=== PATIENT | male | born 1995 | race Caucasian/White ===

== ENCOUNTER 2016-12-10 16:01 | Emergency (ER) | payer BC ==
[2016-12-10 16:15] VITALS: BP 123/64
--- OUTSIDE RECORDS SUMMARY | 2016-12-10 17:07 | XMS REPORT | Continuity of Care Document ---
:1995 Author Organization [facility] ([facility]) Address [address] [place] [address] Phone [phone] Care Team Providers Name Role Phone Sha Padron Primary Care Provider [phone] Source Comments This disclosure is being made pursuant to the Care Everywhere program, applicable federal and state laws, and may not contain all informaitonavailable regarding this patient.[facility] ([facility]) Active Allergies and Adverse Reactions Allergen Noted Date Severity Reactions Comments Penicillins 12/31/2014 Respiratory Distress Current Medications Prescription Sig. Disp. Refills Start Date End Date Status ALPRAZOLAM 2 mg Take 3 Tabs by 12/11/2014 Active disintegrating tablet mouth as needed. ONDANSETRON 4 mg Take 1 Tab by 10/14/2014 Active disintegrating tablet mouth as needed. Active Problems Not on file Social History Tobacco Use Types Packs/Day Years Used Date Never Assessed Last Filed Vital Signs Vital Sign Reading Time Taken Blood Pressure 118/77 02/12/2015 2:23 PM CDT Pulse 71 02/12/2015 12:08 PM CDT Temperature 36.3 C (97.3 F) 02/12/2015 12:08 PM CDT Respiratory Rate 16 02/12/2015 2:23 PM CDT Height 1.727 m (5' 8") 12/31/2014 3:02 PM CDT Weight 78.971 kg (174 lb 1.6 oz) 12/31/2014 3:02 PM CDT Body Mass Index 26.48 12/31/2014 3:02 PM CDT Oxygen Saturation 99% 02/12/2015 2:23 PM CDT Plan of Care Health Maintenance Due Date Last Done Comments Hepatitis B Vaccine (1 of 3 - Primary Series) 1994 HPV Vaccine (1 of 3 - Male 3 Dose Series) 2005 Tdap Vaccine 2005 Meningococcal Vaccine (1 of 1) 2010 Lipid Disorder Screening 2012 MMR Vaccine 2012 Td Vaccine 2012 Varicella Vaccine (1 of 2 - Adult - No Evidence of 2012 Immunity) Influenza Vaccine: Seasonal (#1) 04/06/2016 Results from Last 3 Months Not on file
== END 2016-12-10 17:05 | disposition left against medical advice (07) ==
LOC: ER 16:01
DX: Z53.21 Procedure and treatment not carried out due to patient leaving prior to being seen by health care provider (principal)

== ENCOUNTER 2017-03-21 10:01 | Emergency (ER) | payer BC ==
[2017-03-21] MEDS ORDERED: NORMAL SALINE 1,000 ML IV ONE (10:54)
[2017-03-21] MEDS ORDERED: ONDANSETRON HCL/PF 2 MG/ML VIAL IV ONE (10:54)
[2017-03-21] MEDS ORDERED: LORazepam 2 MG/ML DISP.SYRIN IV ONE (10:55)
[2017-03-21 11:07] LABS: Hematocrit 48.4 % (42.0-52.0); Hemoglobin 17.1 gm/dL (13.5-18.0); Mean Cell Volume 84.3 fl (78-100); Mean Corpuscular Hemoglobin 29.8 pg (27-31); Mean Corpuscular Hgb Conc 35.3 g/dl (32-36); Mean Platelet Volume 10.2 fl (6.0-9.5); Platelet Count 292 K/mm3 (150-450); Red Blood Count 5.74 M/mm3 (4.7-6.0); Red Cell Distribution Width 12.1 % (11.5-14.0); White Blood Count 30.6 K/mm3 (4.0-10.5)
[2017-03-21 11:11] LABS: Total Cells Counted 100
[2017-03-21] MEDS ORDERED: ONDANSETRON HCL/PF 2 MG/ML VIAL ONE (11:18)
[2017-03-21] MEDS ORDERED: LORazepam 2 MG/ML DISP.SYRIN ONE (11:19)
[2017-03-21 11:21] LABS: Albumin * 5.1 gm/dl (3.4-5.0); Anion Gap 19.1 mmol/L (6.8-13.8); BUN/Creatinine Ratio 11.4 (9.0-21.6); Bilirubin, Total 1.5 mg/dL (0.0-1.1); Ca. Corrected For Albumin 8.3 mg/dL (8.4-10.2); Calcium * 9.5 mg/dL (7.9-10.9); Carbon Dioxide 23.4 mmol/L (24-32.6); Potassium 3.5 mmol/L (3.4-4.6); Total Protein 8.6 gm/dL (6.2-8.2)
[2017-03-21] MEDS ORDERED: KETOROLAC TROMETHAMINE 30 MG/ML VIAL IV ONE (11:33)
[2017-03-21] MEDS ORDERED: KETOROLAC TROMETHAMINE 30 MG/ML VIAL ONE (11:35)
[2017-03-21 11:37] LABS: Band 1 % (0-2.0); Lymphocyte 7 % (20-51); Monocyte 4 % (0-9); Neutrophil 88 % (42-75); Neutrophil # 26.9 K/mm3 (1.3-6.0); Platelet Estimate Normal (NORMAL); RBC Morphology Normal (NORMAL)
[2017-03-21 11:47] LABS: Urine Bilirubin 1 mg/dl (NEGATIVE); Urine Ketone Large mg/dL (NEGATIVE); Urine Nitrite Negative (NEGATIVE); Urine Protein 30 mg/dL (NEGATIVE); Urine Specific Gravity >=1.030 SP.GR. (1.005-1.030); Urine Urobilinogen Normal (NORMAL)
[2017-03-21 12:04] LABS: Urine Appearance Clear; Urine Bacteria TRACE; Urine Blood 5 /ul (NEGATIVE); Urine Color Dark Yellow; Urine Mucus Moderate - 2+; Urine RBC 0-5 /hpf (0-5); Urine WBC TRACE /hpf (0-5)
[2017-03-21 12:37] LABS: Cocaine Ur Negative (NEGATIVE); Urine Barbiturate Negative (NEGATIVE); Urine Benzodiazepines Negative (NEGATIVE); Urine Opiates Negative (NEGATIVE); Urine PCP Negative (NEGATIVE)
[2017-03-21 12:38] LABS: Urine THC Positive (NEGATIVE)
[2017-03-21] MEDS ORDERED: NORMAL SALINE 1,000 ML IV PRN (12:48)
--- NOTE | 2017-03-21 14:21 | ERNOTE ---
Medical Problem HPI - Narrative Date of Service: 03/21/17 - General Chief Complaint: Nausea/Vomiting Time Seen by Provider: 03/21/17 10:40 Source: patient, family Exam Limitations: no limitations - Immun/Allergies/Home Medications Immunizations: IMMUNIZATION HX Immunizations Up to Date Yes History of Influenza Vaccine No Hx Pneumococcal Vaccination No Allergies/Adverse Reactions: Allergies penicillin V potassium [From Pen-Vee K] Allergy (Verified 03/21/17 10:44) Home Medications: HOME MEDICATIONS ALPRAZolam [Xanax] 1 mg PO TID PRN 12/05/15 [Last Taken Unknown] Ondansetron [Zofran Odt] 4 mg PO Q6H PRN #20 tab 05/18/16 [Last Taken Unknown] Promethazine HCl [Phenergan Suppository] 25 mg RC Q6H PRN #20 supp.rect [Last Taken Unknown] - Pain Score Pain Score #1 Pain Score: 10 Pain Score #2 Pain Score: 5 Pain Score #3 Pain Score: 1 - History of Present History Narrative: Patient is a 21 year old male who presents to the ED with complaints of vomiting since 0700. Patient appears to be in excruciating pain, holding right posterior back area and dry heaving/retching. Patient has been seen by multiple physicians, specialists for this vomiting. Patient states that nausea and vomiting is usually worse in the morning when he first arises. States that if he does not quickly take his nausea medicine he begins to vomit. No emesis is seen in ER. Denies fever Date (Duration): 03/21/17 Time (Timing): 07:00 Timing: constant Severity: moderate Modifying Factors - (Improves): Present: other - nothing Modifying Factors - (Worsens): Present: movement Review of Systems - Review of Systems Constitutional: Present: no symptoms reported. Absent: recent illness, fever, chills, diaphoresis, weakness, fatigue, malaise, weight loss, fussy, decreased activity level EYE: Present: no symptoms reported. Absent: eye pain, eye discharge, blurred vision, double vision, vision changes, tearing ENT: Present: no symptoms reported. Absent: ear pain, ear discharge, pulling on ears, nose pain, nose congestion, nasal drainage, sore throat, throat swelling Respiratory: Present: no symptoms reported. Absent: shortness of breath, cough , orthopnea, wheezing, stridor Cardiology: Present: no symptoms reported. Absent: chest pain, palpitations, syncope, edema, claudication Gastrointestinal/Abdominal: Present: nausea, vomiting - per report, eating less , drinking less. Absent: diarrhea, constipation, abdominal pain Genitourinary: Present: no symptoms reported Musculoskeletal: Present: back pain. Absent: neck pain, joint pain, joint swelling - right posterior mid back pain Skin: Present: no symptoms reported Neurological: Present: anxiety Endocrine: Present: no symptoms reported Hematologic/Lymphatic: Present: no symptoms reported Psych: Present: no symptoms reported - Patient's Past Medical History Patient History - Medical: Anxiety, Headache, Other Patient History - Cardiac/Respiratory: No pertinent hx Patient History - Cancer: No Hx of Cancer Patient History - Surgical Procedures: Cholecystectomy, T & A Patient History - Other: None - Family History Mother Family History - Medical: No pertinent hx Family History - Cardiac/Respiratory: No pertinent hx Father Family History - Medical: No pertinent hx Family History - Cardiac/Respiratory: No pertinent hx - Social History Living Situations: home Abuse History: No History of abuse Psych History: No pertinent hx Alcohol Use: none Drug Use: none, marijuana - Immunizations Immunizations Up to Date: Yes Hx Pneumococcal Vaccination: No History of Influenza Vaccine: No Physical Exam - Physical Exam General Appearance: Present: wd/wn, alert, mild distress, crying Head Exam: Present: normal inspection, no evidence of injury Eye Exam: Normal inspection: bilateral, PERRL: bilateral, EOMI: bilateral Ears, Nose, Throat: Present: normal ENT inspection, normal pharynx. Absent: pharyngeal erythema, pharyngeal swelling, tonsillar exudate, dry mucous membranes Neck: Present: normal inspection, nontender, supple, full range of motion, limited range of motion Respiratory: Present: no respiratory distress, normal breath sounds, no accessory muscle use, chest nontender, lungs clear Cardiovascular/Chest: Present: regular rate, rhythm, no murmur, normal peripheral pulses Peripheral Pulses: N=norm/S=strong/W=weak/B=bound/A=absent: Radial (R): Normal, Radial (L): Normal Gastrointestinal/Abdominal: Present: normal bowel sounds, nontender, nondistended, soft, no organomegaly Rectal Exam: Present: deferred Male Genitals Exam: Present: deferred Back Exam: Present: normal inspection, no CVA tenderness, decreased range of motion. Absent: normal range of motion Extremity Exam: Present: normal inspection, non-tender, normal range of motion, no edema Neurological Exam: Present: alert, oriented, normal mood/affect, no motor/ sensory deficits Skin Exam: Present: normal color, warm/dry Lymphatic Exam: Present: no adenopathy ED Progress - Results and Orders Patient's Lab Results:: I have reviewed the patient's lab results. - Vital Signs Patient's Vital Signs:: I have reviewed the patient's vital signs. Vital Signs: Vital Signs 03/21/17 03/21/17 03/21/17 10:35 11:37 12:30 Temperature 36.3 C L 36.6 C 36.7 C Pulse Rate 72 86 100 Respiratory 16 22 H 16 Rate Blood Pressure 129/75 127/86 127/70 O2 Sat by Pulse 97 95 100 Oximetry 03/21/17 13:50 Temperature 36.9 C Pulse Rate 99 Respiratory 16 Rate Blood Pressure 111/62 O2 Sat by Pulse 99 Oximetry - Progress/Reassessment Chief Complaint: Nausea/Vomiting Progress:: Improved Progress Note-Subjective: 03/21/17 19:38 Upon discharge patient is lying quietly and states pain is gone. No longer dry heaving or complains of vomiting or nausea. Feels better after 2 liters fluid. Requesting suppositories Departure - Departure Clinical Impression: Vomiting Qualifiers: Vomiting type: cyclical vomiting Vomiting Intractability: intractable Nausea presence: with nausea Qualified Code(s): G43.A1 - Cyclical vomiting, intractable Disposition: Home Follow Up Needed Condition: Good Instructions: Nausea and Vomiting, Adult, [id number] Additional Instructions: Take nausea medications EITHER orally or rectally, one or the other Prescriptions: Promethazine HCl [Phenergan Suppository] 25 mg RC Q6H PRN #20 supp.rect PRN Reason: Nausea
[2017-03-21 14:35] VITALS: BP 103/56
== END 2017-03-21 14:36 | disposition home or self-care (01) ==
LOC: ER 10:01
DX: G43.A1 Cyclical vomiting, in migraine, intractable (principal)
CPT/HCPCS: 36415; 80053; 80307; 81001; 82150; 83605; 83690; 85025; 87040; 96374; 96375; 99284; J2405

== ENCOUNTER 2017-07-10 13:23 | Emergency (ER) | payer BC ==
[2017-07-10] MEDS ORDERED: NORMAL SALINE 1,000 ML IV ONE (13:38)
[2017-07-10] MEDS ORDERED: PROMETHAZINE HCL 12.5 MG in DEXTROSE 5 % IN WATER 50 ML IV ONE ×4 (13:39→15:21)
--- NOTE | 2017-07-10 13:59 | ERNOTE ---
Medical Problem HPI - Narrative Date of Service: 07/10/17 - General Chief Complaint: Nausea/Vomiting Time Seen by Provider: 07/10/17 13:28 Source: patient, family - Immun/Allergies/Home Medications Immunizations: IMMUNIZATION HX Immunizations Up to Date Yes History of Influenza Vaccine No Hx Pneumococcal Vaccination No Allergies/Adverse Reactions: Allergies penicillin V potassium [From Pen-Vee K] Allergy (Verified 07/10/17 13:33) Home Medications: HOME MEDICATIONS ALPRAZolam [Xanax] 1 mg PO TID PRN 12/05/15 [Last Taken Unknown] Ondansetron [Zofran Odt] 4 mg PO Q6H PRN #20 tab 05/18/16 [Last Taken Unknown] Promethazine HCl [Phenergan Suppository] 25 mg RC Q6H PRN #20 supp.rect [Last Taken Unknown] Alprazolam [Alprazolam Odt] 0.5 mg PO TID PRN 4 Days #12 tab.rapdis 07/10/17 [ Last Taken Unknown] - History of Present History Timing: intermittent Severity: moderate Modifying Factors - (Improves): Present: medication Review of Systems - Narrative Narrative: States symptoms began spontaneously this AM at 0800. Has been dry heaving since that time. Took a rectal suppository along with a zofran 4mg which he states he threw back up. Denies any pain, fever, diarrhea. States he has had spontaneous nasea with dry heaves since the age of 2. They thought perhaps it was his gallbladder so they removed that but it did not improve his symptoms. States he is seeing a specialist in [place]. Most recent episodes was several months ago. Does admit to smoking pot most recent yesterday. Patient states he usually gets a bag of fluid and nausea medication and is good to go. - Review of Systems Constitutional: Present: no symptoms reported EYE: Present: no symptoms reported ENT: Present: no symptoms reported Respiratory: Present: no symptoms reported Cardiology: Present: no symptoms reported Gastrointestinal/Abdominal: Present: nausea, vomiting, constipation Genitourinary: Present: no symptoms reported Musculoskeletal: Present: no symptoms reported Skin: Present: no symptoms reported Neurological: Present: no symptoms reported Endocrine: Present: no symptoms reported Hematologic/Lymphatic: Present: no symptoms reported Psych: Present: no symptoms reported - Patient's Past Medical History Patient History - Medical: Anxiety, Headache, Other Patient History - Cardiac/Respiratory: No pertinent hx Patient History - Cancer: No Hx of Cancer Patient History - Surgical Procedures: Cholecystectomy, T & A Patient History - Other: None - Family History Mother Family History - Medical: No pertinent hx Family History - Cardiac/Respiratory: No pertinent hx Father Family History - Medical: No pertinent hx Family History - Cardiac/Respiratory: No pertinent hx - Social History Abuse History: No History of abuse Psych History: No pertinent hx Smoking Status: Current every day smoker Have you smoked in the past 12 months: Yes - Immunizations Immunizations Up to Date: Yes Hx Pneumococcal Vaccination: No History of Influenza Vaccine: No Physical Exam - Physical Exam Narrative: Very active and vocal dry heaves. General Appearance: Present: wd/wn, alert, moderate distress Head Exam: Present: normal inspection, no evidence of injury Eye Exam: Normal inspection: bilateral, PERRL: bilateral, EOMI: bilateral Ears, Nose, Throat: Present: normal ENT inspection Neck: Present: normal inspection, nontender, supple, full range of motion Respiratory: Present: no respiratory distress, normal breath sounds, no accessory muscle use, chest nontender Cardiovascular/Chest: Present: regular rate, rhythm, no murmur Peripheral Pulses: N=norm/S=strong/W=weak/B=bound/A=absent: Radial (R): Normal, Radial (L): Normal Gastrointestinal/Abdominal: Present: normal bowel sounds, nontender, nondistended, soft, no organomegaly Extremity Exam: Present: normal inspection, normal range of motion Neurological Exam: Present: alert, oriented, normal mood/affect Skin Exam: Present: normal color, warm/dry ED Progress - Vital Signs Patient's Vital Signs:: I have reviewed the patient's vital signs. Vital Signs: Vital Signs 07/10/17 13:31 Temperature 36.8 C Pulse Rate 85 Respiratory 14 Rate O2 Sat by Pulse 98 Oximetry - Progress/Reassessment Chief Complaint: Nausea/Vomiting Progress:: Improved Progress Note-Subjective: 07/10/17 14:54 Patient resting quietly in room with no more dry heaves. 07/10/17 16:07 Had another episode of dry heaves but currently appears stable. Departure Clinical Impression: Cyclic vomiting syndrome - Departure Disposition: Home self-care Condition: Good Additional Instructions: Continue your home medication as you are and follow up with family provider for continued evaluation in 2-3 days. Use the xanax only as instructed. May make you drowsy so take with caution. Do not take with any alcohol or recreational drugs. Prescriptions: Alprazolam [Alprazolam Odt] 0.5 mg PO TID PRN 4 Days #12 tab.rapdis PRN Reason: Nausea And Vomiting
[2017-07-10 14:02] LABS: Hematocrit 45.2 % (42.0-52.0); Hemoglobin 16.4 gm/dL (13.5-18.0); Mean Cell Volume 82.9 fl (78-100); Mean Corpuscular Hemoglobin 30.1 pg (27-31); Mean Corpuscular Hgb Conc 36.3 g/dl (32-36); Mean Platelet Volume 10.5 fl (6.0-9.5); Neutrophil # 15.1 K/mm3 (1.3-6.0); Neutrophil % 89.6 % (42-75.0); Platelet Count 243 K/mm3 (150-450); Red Blood Count 5.45 M/mm3 (4.7-6.0); Red Cell Distribution Width 11.8 % (11.5-14.0); White Blood Count 16.8 K/mm3 (4.0-10.5)
[2017-07-10] MEDS ORDERED: LORazepam 2 MG/ML DISP.SYRIN IV ONE (14:14)
[2017-07-10 14:15] LABS: Albumin * 4.7 gm/dl (3.4-5.0); Anion Gap 21.8 mmol/L (6.8-13.8); Bilirubin, Total 0.8 mg/dL (0.0-1.1); Ca. Corrected For Albumin 8.5 mg/dL (8.4-10.2); Calcium * 9.4 mg/dL (7.9-10.9); Carbon Dioxide 17.7 mmol/L (24-32.6); Potassium 3.5 mmol/L (3.4-4.6); Total Protein 7.9 gm/dL (6.2-8.2)
[2017-07-10] MEDS ORDERED: LORazepam 2 MG/ML DISP.SYRIN ONE (14:36)
[2017-07-10] MEDS ORDERED: ONDANSETRON HCL/PF 2 MG/ML VIAL IV ONE (15:20)
[2017-07-10] MEDS ORDERED: ONDANSETRON HCL/PF 2 MG/ML VIAL ONE (15:23)
[2017-07-10 16:31] VITALS: BP 123/70
== END 2017-07-10 16:29 | disposition home or self-care (01) ==
LOC: ER 13:23
DX: G43.A0 Cyclical vomiting, in migraine, not intractable (principal); F17.200 Nicotine dependence, unspecified, uncomplicated; F41.9 Anxiety disorder, unspecified
CPT/HCPCS: 36415; 80053; 85025; 96365; 96375; 99284; J2405